=== PATIENT | female | born 1980 | race Caucasian/White ===

== ENCOUNTER 2018-09-12 04:12 | Emergency (ER) | payer OTHER ==
[~2018-09-12] VITALS: Ht 154.9 cm; Wt 56.7 kg
[~2018-09-12 04:12] MED LIST: KEF500 PO; MOT600 PO; PYR100 PO
[2018-09-12 04:16] VITALS: Ht 154.9 cm; Wt 56.7 kg
[2018-09-12 05:14] LABS: UA SPECIFIC GRAVITY >=1.030 (1.005-1.035); microscopic required? YES; urine erythrocyte 3+ (NEGATIVE)
[2018-09-12 06:35] VITALS: BP 116/74
== END 2018-09-12 06:35 | disposition home or self-care (01) ==
LOC: ED 04:12
PROVIDERS: Emergency Medicine
DX: N30.90 Cystitis, unspecified without hematuria (principal); Z88.6 Allergy status to analgesic agent; Z87.442 Personal history of urinary calculi; Z98.890 Other specified postprocedural states
CPT/HCPCS: J0696; J7030